=== PATIENT | female | born 1960 | race Caucasian/White ===

== ENCOUNTER 2019-08-15 22:24 | Emergency (ER) | payer SELFPAY ==
[~2019-08-15] VITALS: Ht 165.1 cm; Wt 63.5 kg
[2019-08-15 22:25] VITALS: BP 204/101
[2019-08-15] MEDS ORDERED: hydrALAZINE 20 MG/ML VIAL IM ONE (22:50)
[2019-08-16 00:15] VITALS: BP 161/74
== END 2019-08-16 00:15 | disposition home or self-care (01) ==
LOC: MED 22:24
DX: I10 Essential (primary) hypertension (principal)
CPT/HCPCS: 96372; 99283; J0360